=== PATIENT | female | born 1950 | race Caucasian/White ===

== ENCOUNTER 2023-06-25 15:44 | Inpatient (IN) | payer BC, MEDICARE ==
[2023-06-25] MEDS ORDERED: NOREPINEPHRINE 8 MG/250 ML-D5W 250 ML ONE (17:23)
[2023-06-25] MEDS ORDERED: fentaNYL 50 mcg/mL 1 mL Vial ONE (18:29)
[2023-06-25 18:47] LABS: Hemoglobin 9.3 g/dL (12.0-16.0); Mean Corpuscular HGB CONC 34.4 g/dL (32.0-36.0); Mean Corpuscular Volume 104.7 fl (78.0-98.0); Mean Platelet Volume 10.7 fL (7.4-10.4); Red Blood Cell (RBC) Count 2.58 mill/uL (4.20-5.40); White Blood Cell (WBC) Count 3.3 10x3/uL (4.8-10.8)
[2023-06-25 18:48] LABS: Delete Auto Diff?? YES; Manual Diff?? YES; Platelet Count 88 10x3/uL (130-400)
[2023-06-25 18:56] LABS: INR-International Normal Ratio 1.3; PTT 31.1 sec (22.9-36.1)
[2023-06-25] MEDS ORDERED: Sodium Chloride 0.9% 1,000 ML IV SCH (19:00)
[2023-06-25 19:02] LABS: ALT (SGPT) 27 U/L (8-55); AST (SGOT) 61 U/L (5-34); Albumin 3.2 g/dL (3.4-4.8); Alkaline Phosphatase 103 U/L (40-110); Anion Gap 15 mmol/L (10-20); BUN (Urea Nitrogen) 33 mg/dL (9.8-20.1); Bilirubin, Total 0.6 mg/dL (0.2-1.2); CRP (Inflammatory) 5.13 mg/dL (= or < 0.5); Calc. Creatinine Clearance 0 mL/min (70-130); Calcium 7.8 mg/dL (7.8-10.44); Carbon Dioxide 17 mmol/L (23-31); Chloride 110 mmol/L (98-107); Estimated GFR 24; Globulin 2.1 g/dL (2.4-3.5); Glucose 96 mg/dL (83-110); Magnesium 1.6 mg/dL (1.6-2.6); Potassium 4.2 mmol/L (3.5-5.1); Protein, Total 5.3 g/dL (5.8-8.1); Sodium 138 mmol/L (136-145)
[2023-06-25 19:10] LABS: Anisocytosis SLIGHT = 6-15 cells HPF (0-5); Band 38 % (5-11); CellaVision Operator ID LAB.MJL; Dohle Bodies SLIGHT; Elliptocytes SLIGHT = 2-5 cells HPF (0-1); Eosinophils 2 % (0-10); Large Platelets 1.9 % (0-5); Lymphocytes 10 % (21-51); Macrocytosis SLIGHT = 6-15 cells HPF (0-5); Neutrophil 50 % (42-75); Nucleated RBC (Manual Ct) 7 % (0); Ovalocytes SLIGHT = 2-5 cells HPF (0-1); Platelet Adequacy Comment Platelets Decreased; Poikilocytosis SLIGHT = 6-15 cells HPF (0-5); Polychromasia SLIGHT = 2-3 cells HPF (0-2); Schistocytes SLIGHT = 2-5 cells HPF (0-1); Tear Drops SLIGHT = 2-5 cells HPF (0-1); Total Cell Count 103; Vacuoles SLIGHT
[2023-06-25 19:20] LABS: Troponin I 0.464 ng/mL (< 0.028)
[2023-06-25] MEDS ORDERED: Glucagon 1 MG/ML KIT IM PRN (20:01)
[2023-06-25] MEDS ORDERED: Dextrose 5% in Water 1,000 ML IV PRN (20:01)
[2023-06-25] MEDS ORDERED: Dextrose 50% Abboject 50 ML SYRINGE SLOW IVP PRN (20:01)
[2023-06-25] MEDS: Morphine 4 MG/ML VIAL SLOW IVP PRN (21:23)
[2023-06-25] MEDS: Famotidine 20 MG TAB PO SCH (21:25)
[2023-06-25 21:55] LABS: Lactic Acid 3.6 mmol/L (0.5-2.2)
[2023-06-25] MEDS ORDERED: Vancomycin Dose by Levels Sliding Scale (Wt 71-99) FS SCH (22:15)
[2023-06-25] MEDS ORDERED: Sodium Bicarbonate 70 MEQ in Sodium Chloride 0.45% 1,000 ML IV SCH (22:45)
[2023-06-25] MEDS ORDERED: Sodium Chloride 0.9% 500 ML IV SCH (22:45)
[2023-06-25] MEDS ORDERED: Vasopressin 20 UNITS in Sodium Chloride 0.9% 50 ML IV SCH (22:45)
[2023-06-25] MEDS: NOREPINEPHRINE 8 MG/250 ML-D5W 250 ML IVPB SCH (23:14)
[2023-06-25] MEDS ORDERED: Hydrocortisone Sod Succ/PF 100 mg/2 ml Vial IVP SCH (23:59)
[2023-06-26] MEDS: Cefepime 1 GM in Sodium Chloride 0.9% 100 ML IVPB SCH ×2 (02:54→15:14)
[2023-06-26] MEDS: NOREPINEPHRINE 8 MG/250 ML-D5W 250 ML IVPB SCH ×3 (02:56→19:23)
[2023-06-26 04:09] LABS: Hematocrit 28.6 % (36.0-47.0); Hemoglobin 9.6 g/dL (12.0-16.0); Mean Corpuscular HGB CONC 33.6 g/dL (32.0-36.0); Mean Corpuscular Hemoglobin 35.4 pg (27.0-31.0); Mean Corpuscular Volume 105.5 fl (78.0-98.0); Platelet Count 95 10x3/uL (130-400); RBC Distribution Width 15.4 % (11.5-14.5); Red Blood Cell (RBC) Count 2.71 mill/uL (4.20-5.40); White Blood Cell (WBC) Count 6.7 10x3/uL (4.8-10.8)
[2023-06-26 04:11] LABS: Delete Auto Diff?? YES; Manual Diff?? YES
[2023-06-26 04:25] LABS: Lactic Acid 3.2 mmol/L (0.5-2.2)
[2023-06-26 04:31] LABS: ALT (SGPT) 34 U/L (8-55); AST (SGOT) 90 U/L (5-34); Albumin 3.2 g/dL (3.4-4.8); Alkaline Phosphatase 109 U/L (40-110); Anion Gap 17 mmol/L (10-20); BUN (Urea Nitrogen) 35 mg/dL (9.8-20.1); Bilirubin, Total 0.8 mg/dL (0.2-1.2); CK (CPK) 1734 U/L (29-168); Calc. Creatinine Clearance 25 mL/min (70-130); Calcium 7.4 mg/dL (7.8-10.44); Carbon Dioxide 17 mmol/L (23-31); Chloride 107 mmol/L (98-107); Estimated GFR 20; Globulin 2.5 g/dL (2.4-3.5); Glucose 189 mg/dL (83-110); Potassium 4.5 mmol/L (3.5-5.1); Protein, Total 5.7 g/dL (5.8-8.1); Sodium 136 mmol/L (136-145)
[2023-06-26 04:32] LABS: Anisocytosis SLIGHT = 6-15 cells HPF (0-5); Band 38 % (5-11); CellaVision Operator ID LAB.CLH1; Hypochromia SLIGHT = 6-15 cells HPF (0-5); Lymphocytes 3 % (21-51); Macrocytosis SLIGHT = 6-15 cells HPF (0-5); Metamyelocyte 5 % (0-0); Monocytes 5 % (0-10); Neutrophil 50 % (42-75); Nucleated RBC (Manual Ct) 2 % (0); Platelet Adequacy Comment Platelets Decreased; Polychromasia SLIGHT = 2-3 cells HPF (0-2); Total Cell Count 105
[2023-06-26] MEDS ORDERED: Vancomycin 1 GM in Premix 1 BAG IVPB SCH (09:00)
[2023-06-26] MEDS ORDERED: Lactated Ringer's 1,000 ML IV SCH (09:30)
[2023-06-26] MEDS: Morphine 4 MG/ML VIAL SLOW IVP PRN (09:45)
[2023-06-26] MEDS: Ondansetron PF 4 MG/2 ML Vial IVP PRN (09:54)
[2023-06-26] MEDS: HYDROcodone/Acetaminophen 10/325 mg Tablet PO PRN ×2 (12:26→20:25)
[2023-06-26 13:34] LABS: Vancomycin, Random 12.7 ug/mL (See Comment)
[2023-06-26] MEDS ORDERED: Vancomycin HCl 750 MG in Sodium Chloride 0.9% 250 ML 250 ML IVPB SCH (13:45)
[2023-06-26] MEDS: Sodium Chloride 0.45% 1,000 ML IV SCH (17:16)
[2023-06-26] MEDS: Famotidine 20 MG TAB PO SCH (20:26)
[2023-06-26] MEDS ORDERED: Sodium Chloride 0.9% 500 ML IV SCH (23:15)
[2023-06-26] MEDS ORDERED: Amiodarone 150 MG, Admixture Fee 1 EACH in Dextrose 5% in Water 100 ML IVPB SCH (23:30)
[2023-06-26] MEDS: Amiodarone 450 MG in Dextrose 5% in Water 250 ML IVPB SCH (23:36)
[2023-06-27] MEDS: HYDROcodone/Acetaminophen 10/325 mg Tablet PO PRN ×2 (01:24→06:14)
[2023-06-27] MEDS: Cefepime 1 GM in Sodium Chloride 0.9% 100 ML IVPB SCH ×2 (02:06→14:08)
[2023-06-27] MEDS ORDERED: dilTIAZem 25 MG/5 ML VIAL SLOW IVP SCH (03:00)
[2023-06-27 05:22] LABS: Hematocrit 25.9 % (36.0-47.0); Hemoglobin 8.6 g/dL (12.0-16.0); Mean Corpuscular HGB CONC 33.2 g/dL (32.0-36.0); Mean Corpuscular Volume 105.3 fl (78.0-98.0); Mean Platelet Volume 12.5 fL (7.4-10.4); RBC Distribution Width 15.3 % (11.5-14.5); Red Blood Cell (RBC) Count 2.46 mill/uL (4.20-5.40); White Blood Cell (WBC) Count 5.7 10x3/uL (4.8-10.8)
[2023-06-27 05:27] LABS: Platelet Count 53 10x3/uL (130-400)
[2023-06-27 05:28] LABS: Delete Auto Diff?? YES; Manual Diff?? YES
[2023-06-27 05:46] LABS: ALT (SGPT) 37 U/L (8-55); AST (SGOT) 72 U/L (5-34); Albumin 2.8 g/dL (3.4-4.8); Alkaline Phosphatase 106 U/L (40-110); Anion Gap 14 mmol/L (10-20); BUN (Urea Nitrogen) 25 mg/dL (9.8-20.1); Bilirubin, Total 0.8 mg/dL (0.2-1.2); Calc. Creatinine Clearance 43 mL/min (70-130); Calcium 7.8 mg/dL (7.8-10.44); Carbon Dioxide 21 mmol/L (23-31); Chloride 110 mmol/L (98-107); Estimated GFR 38; Globulin 2.5 g/dL (2.4-3.5); Glucose 140 mg/dL (83-110); Potassium 4.4 mmol/L (3.5-5.1); Protein, Total 5.3 g/dL (5.8-8.1); Sodium 141 mmol/L (136-145)
[2023-06-27 05:48] LABS: Troponin I 0.112 ng/mL (< 0.028)
[2023-06-27] MEDS: Sodium Chloride 0.45% 1,000 ML IV SCH ×2 (05:56→20:21)
[2023-06-27 06:11] LABS: Anisocytosis MODERATE=16-30 cells HPF (0-5); Band 15 % (5-11); CellaVision Operator ID lab.sh2; Lymphocytes 5 % (21-51); Macrocytosis MODERATE=16-30 cells HPF (0-5); Monocytes 13 % (0-10); Neutrophil 67 % (42-75); Nucleated RBC (Manual Ct) 2 % (0); Ovalocytes MODERATE= 6-15 cells HPF (0-1); Platelet Adequacy Comment Significant decrease; Poikilocytosis SLIGHT = 6-15 cells HPF (0-5); Polychromasia SLIGHT = 2-3 cells HPF (0-2); Smudge Cells 11.5 %; Tear Drops SLIGHT = 2-5 cells HPF (0-1); Total Cell Count 104; Vacuoles SLIGHT
[2023-06-27] MEDS: Amiodarone 450 MG in Dextrose 5% in Water 250 ML IVPB SCH ×2 (08:32→23:04)
[2023-06-27 13:15] LABS: Vancomycin, Random 11.4 ug/mL (See Comment)
[2023-06-27] MEDS: Lorazepam 2 MG/ML VIAL SLOW IVP PRN ×2 (17:44→22:22)
[2023-06-27] MEDS: Famotidine 20 MG TAB PO SCH (20:23)
[2023-06-28] MEDS: Morphine 4 MG/ML VIAL SLOW IVP PRN (00:15)
[2023-06-28] MEDS ORDERED: OLANZapine 10 MG VIAL IM SCH (01:00)
[2023-06-28] MEDS ORDERED: Sterile Water 10 ML VIAL FS SCH (01:15)
[2023-06-28] MEDS: Cefepime 1 GM in Sodium Chloride 0.9% 100 ML IVPB SCH ×2 (02:24→14:02)
[2023-06-28 04:24] LABS: Hematocrit 23.5 % (36.0-47.0); Mean Corpuscular Hemoglobin 35.7 pg (27.0-31.0); Mean Corpuscular Volume 104.9 fl (78.0-98.0); Mean Platelet Volume 13.3 fL (7.4-10.4); RBC Distribution Width 15.1 % (11.5-14.5); Red Blood Cell (RBC) Count 2.24 mill/uL (4.20-5.40); White Blood Cell (WBC) Count 5.5 10x3/uL (4.8-10.8)
[2023-06-28 04:26] LABS: Platelet Count 43 10x3/uL (130-400)
[2023-06-28 04:27] LABS: Delete Auto Diff?? YES; Manual Diff?? YES
[2023-06-28 04:51] LABS: ALT (SGPT) 33 U/L (8-55); AST (SGOT) 52 U/L (5-34); Alkaline Phosphatase 120 U/L (40-110); Anion Gap 11 mmol/L (10-20); BUN (Urea Nitrogen) 24 mg/dL (9.8-20.1); Bilirubin, Total 0.5 mg/dL (0.2-1.2); Calc. Creatinine Clearance 53 mL/min (70-130); Calcium 8.8 mg/dL (7.8-10.44); Carbon Dioxide 23 mmol/L (23-31); Chloride 113 mmol/L (98-107); Estimated GFR 50; Globulin 2.4 g/dL (2.4-3.5); Glucose 88 mg/dL (83-110); Potassium 4.5 mmol/L (3.5-5.1); Protein, Total 5.4 g/dL (5.8-8.1); Sodium 142 mmol/L (136-145)
[2023-06-28 05:01] LABS: Anisocytosis SLIGHT = 6-15 cells HPF (0-5); Band 32 % (5-11); CellaVision Operator ID LAB.CLH1; Hypochromia SLIGHT = 6-15 cells HPF (0-5); Lymphocytes 8 % (21-51); Macrocytosis SLIGHT = 6-15 cells HPF (0-5); Monocytes 3 % (0-10); Neutrophil 56 % (42-75); Platelet Adequacy Comment Platelets Decreased; Polychromasia SLIGHT = 2-3 cells HPF (0-2); Total Cell Count 100
[2023-06-28] MEDS: Sodium Chloride 0.45% 1,000 ML IV SCH ×2 (08:19→21:12)
[2023-06-28] MEDS: Dexmedetomidine 400 MCG, Admixture Fee 1 EACH in Sodium Chloride 0.9% 96 ML IVPB SCH ×2 (09:02→21:22)
[2023-06-28] MEDS: Gabapentin 300 MG CAP PO SCH ×2 (09:03→20:56)
[2023-06-28] MEDS: ALPRAZolam 0.5 MG TAB PO SCH ×3 (09:19→20:55)
[2023-06-28] MEDS ORDERED: Sodium Chloride 0.9% 500 ML IV SCH (11:45)
[2023-06-28] MEDS: Amiodarone 450 MG in Dextrose 5% in Water 250 ML IVPB SCH (14:03)
[2023-06-28] MEDS: Famotidine 20 MG TAB PO SCH (20:55)
[2023-06-29] MEDS: Cefepime 1 GM in Sodium Chloride 0.9% 100 ML IVPB SCH (03:50)
[2023-06-29 04:20] LABS: Hematocrit 25.8 % (36.0-47.0); Hemoglobin 8.8 g/dL (12.0-16.0); Mean Corpuscular HGB CONC 34.1 g/dL (32.0-36.0); Mean Corpuscular Hemoglobin 36.5 pg (27.0-31.0); Mean Corpuscular Volume 107.1 fl (78.0-98.0); Mean Platelet Volume 14.1 fL (7.4-10.4); RBC Distribution Width 15.3 % (11.5-14.5); Red Blood Cell (RBC) Count 2.41 mill/uL (4.20-5.40); White Blood Cell (WBC) Count 6.4 10x3/uL (4.8-10.8)
[2023-06-29 04:22] LABS: Delete Auto Diff?? YES; Manual Diff?? YES; Platelet Count 64 10x3/uL (130-400)
[2023-06-29 04:48] LABS: ALT (SGPT) 36 U/L (8-55); AST (SGOT) 43 U/L (5-34); Albumin 2.9 g/dL (3.4-4.8); Alkaline Phosphatase 127 U/L (40-110); Anion Gap 16 mmol/L (10-20); BUN (Urea Nitrogen) 30 mg/dL (9.8-20.1); Bilirubin, Total 0.5 mg/dL (0.2-1.2); Calc. Creatinine Clearance 55 mL/min (70-130); Calcium 8.3 mg/dL (7.8-10.44); Carbon Dioxide 19 mmol/L (23-31); Chloride 114 mmol/L (98-107); Estimated GFR 52; Globulin 2.5 g/dL (2.4-3.5); Glucose 114 mg/dL (83-110); Potassium 4.9 mmol/L (3.5-5.1); Protein, Total 5.4 g/dL (5.8-8.1); Sodium 144 mmol/L (136-145)
[2023-06-29 05:02] LABS: Anisocytosis MODERATE=16-30 cells HPF (0-5); Band 4 % (5-11); CellaVision Operator ID lab.sh2; Dohle Bodies MODERATE; Lymphocytes 12 % (21-51); Macrocytosis MODERATE=16-30 cells HPF (0-5); Monocytes 7 % (0-10); Neutrophil 77 % (42-75); Nucleated RBC (Manual Ct) 3 % (0); Ovalocytes MODERATE= 6-15 cells HPF (0-1); Platelet Adequacy Comment Platelets Decreased; Poikilocytosis SLIGHT = 6-15 cells HPF (0-5); Polychromasia SLIGHT = 2-3 cells HPF (0-2); Tear Drops SLIGHT = 2-5 cells HPF (0-1); Total Cell Count 101; Vacuoles SLIGHT
[2023-06-29] MEDS: Gabapentin 300 MG CAP PO SCH ×3 (08:46→20:27)
[2023-06-29] MEDS: ALPRAZolam 0.5 MG TAB PO SCH ×3 (08:46→20:34)
[2023-06-29] MEDS: HYDROcodone/Acetaminophen 10/325 mg Tablet PO PRN ×2 (08:47→16:43)
[2023-06-29] MEDS ORDERED: Amiodarone 200 MG TAB PO SCH (10:30)
[2023-06-29] MEDS ORDERED: Polyethylene Glycol 3350 17 GM Packet PO SCH (11:30)
[2023-06-29] MEDS ORDERED: Electrolyte Replacement Protocol FS PRN (11:30)
[2023-06-29] MEDS ORDERED: Electrolyte Replacement Protocol 1 EACH FS SCH (11:30)
[2023-06-29] MEDS ORDERED: Senokot S 8.6-50 MG TAB PO SCH (11:30)
[2023-06-29] MEDS: Dextrose 5 %-0.45 % NaCl 1,000 ML IV SCH (11:33)
[2023-06-29] MEDS: Sodium Chloride 0.45% 1,000 ML IV SCH (12:18)
[2023-06-29] MEDS: Amiodarone 200 MG TAB PO SCH ×2 (16:02→20:21)
[2023-06-29] MEDS: Morphine 4 MG/ML VIAL SLOW IVP PRN (18:58)
[2023-06-29] MEDS: Famotidine 20 MG TAB PO SCH (20:21)
[2023-06-29] MEDS: Senokot S 8.6-50 MG TAB PO SCH (20:27)
[2023-06-30] MEDS: Dextrose 5 %-0.45 % NaCl 1,000 ML IV SCH ×2 (00:32→08:39)
[2023-06-30 04:06] LABS: Hematocrit 24.6 % (36.0-47.0); Hemoglobin 8.3 g/dL (12.0-16.0); Mean Corpuscular HGB CONC 33.7 g/dL (32.0-36.0); Mean Corpuscular Hemoglobin 35.2 pg (27.0-31.0); Mean Corpuscular Volume 104.2 fl (78.0-98.0); Mean Platelet Volume 13.1 fL (7.4-10.4); RBC Distribution Width 15.1 % (11.5-14.5); Red Blood Cell (RBC) Count 2.36 mill/uL (4.20-5.40); White Blood Cell (WBC) Count 5.6 10x3/uL (4.8-10.8)
[2023-06-30 04:07] LABS: Platelet Count 63 10x3/uL (130-400)
[2023-06-30 04:08] LABS: Delete Auto Diff?? YES; Manual Diff?? YES
[2023-06-30 04:34] LABS: ALT (SGPT) 30 U/L (8-55); AST (SGOT) 34 U/L (5-34); Albumin 2.9 g/dL (3.4-4.8); Alkaline Phosphatase 125 U/L (40-110); Anion Gap 11 mmol/L (10-20); BUN (Urea Nitrogen) 28 mg/dL (9.8-20.1); Bilirubin, Total 0.3 mg/dL (0.2-1.2); Calc. Creatinine Clearance 65 mL/min (70-130); Calcium 8.3 mg/dL (7.8-10.44); Carbon Dioxide 22 mmol/L (23-31); Chloride 110 mmol/L (98-107); Estimated GFR 64; Globulin 2.3 g/dL (2.4-3.5); Glucose 159 mg/dL (83-110); Potassium 4.2 mmol/L (3.5-5.1); Protein, Total 5.2 g/dL (5.8-8.1); Sodium 139 mmol/L (136-145)
[2023-06-30 04:37] LABS: Band 24 % (5-11); CellaVision Operator ID LAB.CLH1; Elliptocytes SLIGHT = 2-5 cells HPF (0-1); Hypochromia SLIGHT = 6-15 cells HPF (0-5); Lymphocytes 16 % (21-51); Macrocytosis SLIGHT = 6-15 cells HPF (0-5); Monocytes 6 % (0-10); Neutrophil 54 % (42-75); Platelet Adequacy Comment Platelets Normal; Polychromasia SLIGHT = 2-3 cells HPF (0-2); Reactive Lymphocytes 1 % (0-10); Total Cell Count 101
[2023-06-30] MEDS ORDERED: tiZANidine HCl 4 MG TAB PO PRN (08:31)
[2023-06-30] MEDS: Polyethylene Glycol 3350 17 GM Packet PO SCH (08:36)
[2023-06-30] MEDS: Senokot S 8.6-50 MG TAB PO SCH ×2 (08:36→22:19)
[2023-06-30] MEDS: Gabapentin 300 MG CAP PO SCH ×2 (08:36→22:18)
[2023-06-30] MEDS: Famotidine 20 MG TAB PO SCH ×2 (08:36→22:19)
[2023-06-30] MEDS: Amiodarone 200 MG TAB PO SCH ×3 (08:45→22:18)
[2023-06-30] MEDS ORDERED: CEFAZOLIN 2 GM in Sodium Chloride 0.9% 100 ML IVPB SCH (09:45)
[2023-06-30] MEDS ORDERED: Vancomycin 1 GM in Premix 1 BAG IVPB SCH (09:45)
[2023-06-30] MEDS: ALPRAZolam 0.5 MG TAB PO SCH ×3 (09:52→22:18)
[2023-06-30] MEDS: Exemestane 25 MG TAB PO SCH (09:52)
[2023-06-30] MEDS: Morphine 4 MG/ML VIAL SLOW IVP PRN ×2 (10:07→14:42)
[2023-06-30] MEDS: HYDROcodone/Acetaminophen 10/325 mg Tablet PO PRN (18:23)
[2023-07-01] MEDS: Dextrose 5 %-0.45 % NaCl 1,000 ML IV SCH ×2 (09:53→18:28)
[2023-07-01] MEDS: Senokot S 8.6-50 MG TAB PO SCH ×2 (09:56→21:46)
[2023-07-01] MEDS: Polyethylene Glycol 3350 17 GM Packet PO SCH (09:56)
[2023-07-01] MEDS: Gabapentin 300 MG CAP PO SCH ×2 (09:58→21:46)
[2023-07-01] MEDS: ALPRAZolam 0.5 MG TAB PO SCH ×3 (09:58→21:34)
[2023-07-01] MEDS: Amiodarone 200 MG TAB PO SCH ×3 (09:58→21:46)
[2023-07-01] MEDS: Famotidine 20 MG TAB PO SCH ×2 (09:59→21:46)
[2023-07-01] MEDS ORDERED: fentaNYL PF 100 MCG/2 ML SYRINGE ONE ×2 (13:02→15:59)
[2023-07-01] MEDS ORDERED: CEFAZOLIN 2 GM VIAL ONE (13:26)
[2023-07-01] MEDS ORDERED: Sodium Chloride 0.9% 100 ML ONE (13:26)
[2023-07-01] MEDS ORDERED: Vancomycin 1 GM VIAL ONE (13:59)
[2023-07-01] MEDS ORDERED: Ondansetron PF 4 MG/2 ML Vial ONE (14:05)
[2023-07-01] MEDS ORDERED: PHENYLEPHRINE-NS 100 MCG/ML 10 ML SYRINGE ONE (14:05)
[2023-07-01] MEDS ORDERED: Lidocaine 1% PF 5 ML VIAL ONE (14:05)
[2023-07-01] MEDS ORDERED: Rocuronium Bromide 10 MG/ML (10ML VIAL) ONE (14:05)
[2023-07-01] MEDS ORDERED: Phenylephrine 10 MG/ML VIAL ONE (14:13)
[2023-07-01] MEDS ORDERED: Promethazine HCl 25 MG/ML VIAL IM PRN (14:46)
[2023-07-01] MEDS ORDERED: Ondansetron HCl/PF 4 MG/2 ML Vial IVP PRN (14:46)
[2023-07-01] MEDS ORDERED: SUGAMMADEX SODIUM 200 MG/2 ML VIAL ONE (14:53)
[2023-07-01] MEDS ORDERED: fentaNYL 50 mcg/mL 1 mL Vial ONE ×2 (15:47→16:39)
[2023-07-01] MEDS: Exemestane 25 MG TAB PO SCH (18:10)
[2023-07-01] MEDS: Morphine 4 MG/ML VIAL SLOW IVP PRN (18:10)
[2023-07-01] MEDS: CEFAZOLIN 2 GM in Sodium Chloride 0.9% 100 ML IVPB SCH (21:35)
[2023-07-02 04:42] LABS: Hematocrit 33.7 % (36.0-47.0); Hemoglobin 11.5 g/dL (12.0-16.0); Mean Corpuscular HGB CONC 34.1 g/dL (32.0-36.0); Mean Corpuscular Hemoglobin 34.5 pg (27.0-31.0); Mean Corpuscular Volume 101.2 fl (78.0-98.0); Mean Platelet Volume 12.7 fL (7.4-10.4); Platelet Count 133 10x3/uL (130-400); RBC Distribution Width 19.3 % (11.5-14.5); Red Blood Cell (RBC) Count 3.33 mill/uL (4.20-5.40); White Blood Cell (WBC) Count 8.4 10x3/uL (4.8-10.8)
[2023-07-02 05:05] LABS: ALT (SGPT) 35 U/L (8-55); AST (SGOT) 41 U/L (5-34); Albumin 3.3 g/dL (3.4-4.8); Alkaline Phosphatase 145 U/L (40-110); Anion Gap 16 mmol/L (10-20); BUN (Urea Nitrogen) 20 mg/dL (9.8-20.1); Bilirubin, Total 0.9 mg/dL (0.2-1.2); Calc. Creatinine Clearance 60 mL/min (70-130); Calcium 8.4 mg/dL (7.8-10.44); Carbon Dioxide 20 mmol/L (23-31); Chloride 105 mmol/L (98-107); Estimated GFR 59; Globulin 2.8 g/dL (2.4-3.5); Glucose 153 mg/dL (83-110); Potassium 4.5 mmol/L (3.5-5.1); Protein, Total 6.1 g/dL (5.8-8.1); Sodium 136 mmol/L (136-145)
[2023-07-02 05:24] LABS: Delete Auto Diff?? YES; Manual Diff?? YES
[2023-07-02 06:06] LABS: Anisocytosis SLIGHT = 6-15 cells HPF (0-5); Band 4 % (5-11); CellaVision Operator ID lab.abc; Large Platelets 1.7 % (0-5); Lymphocytes 3 % (21-51); Monocytes 13 % (0-10); Neutrophil 79 % (42-75); Nucleated RBC (Manual Ct) 3 % (0); Platelet Adequacy Comment Platelets Normal; Polychromasia SLIGHT = 2-3 cells HPF (0-2); Total Cell Count 120; Toxic Granulation SLIGHT
[2023-07-02] MEDS: CEFAZOLIN 2 GM in Sodium Chloride 0.9% 100 ML IVPB SCH (06:06)
[2023-07-02] MEDS: Dextrose 5 %-0.45 % NaCl 1,000 ML IV SCH ×2 (09:25→20:57)
[2023-07-02] MEDS: Polyethylene Glycol 3350 17 GM Packet PO SCH (09:25)
[2023-07-02] MEDS: Exemestane 25 MG TAB PO SCH (09:26)
[2023-07-02] MEDS: Senokot S 8.6-50 MG TAB PO SCH ×2 (09:27→20:55)
[2023-07-02] MEDS: ALPRAZolam 0.5 MG TAB PO SCH ×3 (09:28→22:56)
[2023-07-02] MEDS: Famotidine 20 MG TAB PO SCH ×2 (09:29→20:52)
[2023-07-02] MEDS: Amiodarone 200 MG TAB PO SCH ×2 (09:30→20:52)
[2023-07-02] MEDS: Gabapentin 300 MG CAP PO SCH ×2 (09:48→20:53)
[2023-07-02] MEDS: Acetaminophen 325 MG TAB PO PRN (20:56)
[2023-07-02] MEDS: HYDROcodone/Acetaminophen 10/325 mg Tablet PO PRN (22:55)
[2023-07-03 05:39] LABS: Hematocrit 26.8 % (36.0-47.0); Mean Corpuscular HGB CONC 33.6 g/dL (32.0-36.0); Mean Corpuscular Hemoglobin 34.4 pg (27.0-31.0); Mean Corpuscular Volume 102.3 fl (78.0-98.0); Mean Platelet Volume 11.6 fL (7.4-10.4); Platelet Count 116 10x3/uL (130-400); Red Blood Cell (RBC) Count 2.62 mill/uL (4.20-5.40); White Blood Cell (WBC) Count 8.6 10x3/uL (4.8-10.8)
[2023-07-03 06:05] LABS: ALT (SGPT) 18 U/L (8-55); AST (SGOT) 26 U/L (5-34); Alkaline Phosphatase 99 U/L (40-110); Anion Gap 11 mmol/L (10-20); BUN (Urea Nitrogen) 22 mg/dL (9.8-20.1); Bilirubin, Total 0.4 mg/dL (0.2-1.2); Calc. Creatinine Clearance 70 mL/min (70-130); Calcium 8.7 mg/dL (7.8-10.44); Carbon Dioxide 24 mmol/L (23-31); Chloride 106 mmol/L (98-107); Estimated GFR 73; Globulin 2.4 g/dL (2.4-3.5); Glucose 148 mg/dL (83-110); Protein, Total 5.4 g/dL (5.8-8.1); Sodium 137 mmol/L (136-145)
[2023-07-03 06:19] LABS: Delete Auto Diff?? YES; Manual Diff?? YES
[2023-07-03 07:08] LABS: Anisocytosis MODERATE=16-30 cells HPF (0-5); Band 5 % (5-11); CellaVision Operator ID LAB.CMB; Elliptocytes SLIGHT = 2-5 cells HPF (0-1); Eosinophils 1 % (0-10); Large Platelets 2.9 % (0-5); Lymphocytes 12 % (21-51); Macrocytosis MODERATE=16-30 cells HPF (0-5); Monocytes 5 % (0-10); Neutrophil 75 % (42-75); Plasma Cells 2 % (0-0); Platelet Adequacy Comment Platelets Decreased; Polychromasia MODERATE = 3-4 cells HPF (0-2); Total Cell Count 105
[2023-07-03] MEDS: Gabapentin 300 MG CAP PO SCH ×2 (08:54→20:44)
[2023-07-03] MEDS: Amiodarone 200 MG TAB PO SCH ×2 (08:55→20:44)
[2023-07-03] MEDS: Famotidine 20 MG TAB PO SCH ×2 (08:55→20:43)
[2023-07-03] MEDS: Senokot S 8.6-50 MG TAB PO SCH ×2 (08:56→20:46)
[2023-07-03] MEDS: Polyethylene Glycol 3350 17 GM Packet PO SCH (08:56)
[2023-07-03] MEDS: Exemestane 25 MG TAB PO SCH (08:57)
[2023-07-03] MEDS: ALPRAZolam 0.5 MG TAB PO SCH ×3 (08:57→20:42)
[2023-07-03] MEDS: Dextrose 5 %-0.45 % NaCl 1,000 ML IV SCH (16:28)
[2023-07-03] MEDS: HYDROcodone/Acetaminophen 10/325 mg Tablet PO PRN ×2 (16:32→21:47)
[2023-07-04] MEDS: Amiodarone 200 MG TAB PO SCH ×2 (08:30→20:24)
[2023-07-04] MEDS: Famotidine 20 MG TAB PO SCH ×2 (08:30→20:24)
[2023-07-04] MEDS: Exemestane 25 MG TAB PO SCH (08:30)
[2023-07-04] MEDS: Polyethylene Glycol 3350 17 GM Packet PO SCH (08:31)
[2023-07-04] MEDS: Senokot S 8.6-50 MG TAB PO SCH ×2 (08:31→20:24)
[2023-07-04] MEDS: ALPRAZolam 0.5 MG TAB PO SCH ×3 (08:31→20:24)
[2023-07-04] MEDS: Gabapentin 300 MG CAP PO SCH ×2 (08:31→20:25)
[2023-07-04] MEDS: Dextrose 5 %-0.45 % NaCl 1,000 ML IV SCH (12:30)
[2023-07-04] MEDS: HYDROcodone/Acetaminophen 10/325 mg Tablet PO PRN (18:04)
[2023-07-04] MEDS: Acetaminophen 325 MG TAB PO PRN (20:25)
[2023-07-05] MEDS: Triple Antibiotic Ointment 15 GM TUBE TOP SCH ×2 (08:45→20:45)
[2023-07-05] MEDS: Senokot S 8.6-50 MG TAB PO SCH ×2 (08:45→20:45)
[2023-07-05] MEDS: Amiodarone 200 MG TAB PO SCH ×2 (08:46→20:46)
[2023-07-05] MEDS: Gabapentin 300 MG CAP PO SCH ×2 (08:46→20:46)
[2023-07-05] MEDS: Polyethylene Glycol 3350 17 GM Packet PO SCH (08:47)
[2023-07-05] MEDS: Exemestane 25 MG TAB PO SCH (08:47)
[2023-07-05] MEDS: Dextrose 5 %-0.45 % NaCl 1,000 ML IV SCH (08:48)
[2023-07-05] MEDS: ALPRAZolam 0.5 MG TAB PO SCH ×3 (09:13→20:15)
[2023-07-05] MEDS: Famotidine 20 MG TAB PO SCH ×2 (09:17→20:46)
[2023-07-05] MEDS: Acetaminophen 325 MG TAB PO PRN ×2 (11:02→20:44)
[2023-07-06] MEDS: Dextrose 5 %-0.45 % NaCl 1,000 ML IV SCH (05:00)
[2023-07-06 05:34] LABS: #Basophils 0.1 thou/uL (0.0-0.2); #Eosinphils 0.1 thou/uL (0.0-0.7); #Monocytes 0.8 thou/uL (0.11-0.59); #Neutrophils 4.4 thou/uL (1.40-6.50); %Basophils 0.9 % (0.0-1.0); %Eosinophils 1.2 % (0.0-10.0); %Monocytes 11.7 % (0.0-10.0); %Neutrophils 65.7 % (42.0-75.0); Hematocrit 27.2 % (36.0-47.0); Hemoglobin 8.9 g/dL (12.0-16.0); Mean Corpuscular HGB CONC 32.7 g/dL (32.0-36.0); Mean Corpuscular Hemoglobin 33.8 pg (27.0-31.0); Mean Corpuscular Volume 103.4 fl (78.0-98.0); Mean Platelet Volume 10.2 fL (7.4-10.4); Platelet Count 243 10x3/uL (130-400); RBC Distribution Width 16.8 % (11.5-14.5); Red Blood Cell (RBC) Count 2.63 mill/uL (4.20-5.40); White Blood Cell (WBC) Count 6.7 10x3/uL (4.8-10.8)
[2023-07-06 05:55] LABS: Anion Gap 15 mmol/L (10-20); BUN (Urea Nitrogen) 19 mg/dL (9.8-20.1); Calc. Creatinine Clearance 74 mL/min (70-130); Calcium 8.5 mg/dL (7.8-10.44); Carbon Dioxide 22 mmol/L (23-31); Chloride 107 mmol/L (98-107); Estimated GFR 77; Glucose 96 mg/dL (83-110); Magnesium 1.9 mg/dL (1.6-2.6); Sodium 140 mmol/L (136-145)
[2023-07-06] MEDS: Acetaminophen 325 MG TAB PO PRN ×2 (06:53→10:48)
[2023-07-06] MEDS ORDERED: Magnesium 2 GM/50 ML(in water) 2 GM in Premix 1 BAG IVPB SCH (08:00)
[2023-07-06] MEDS ORDERED: Morphine 2 MG/ML VIAL SLOW IVP PRN (09:03)
[2023-07-06] MEDS: ALPRAZolam 0.5 MG TAB PO SCH ×3 (10:49→20:55)
[2023-07-06] MEDS: Polyethylene Glycol 3350 17 GM Packet PO SCH (10:49)
[2023-07-06] MEDS: Exemestane 25 MG TAB PO SCH (10:50)
[2023-07-06] MEDS: Gabapentin 300 MG CAP PO SCH ×2 (10:50→20:54)
[2023-07-06] MEDS: Amiodarone 200 MG TAB PO SCH ×2 (10:50→20:54)
[2023-07-06] MEDS: Senokot S 8.6-50 MG TAB PO SCH ×2 (10:50→20:54)
[2023-07-06] MEDS: Famotidine 20 MG TAB PO SCH ×2 (10:51→20:54)
[2023-07-06] MEDS: Triple Antibiotic Ointment 15 GM TUBE TOP SCH (10:52)
[2023-07-06] MEDS ORDERED: Aluminum & Magnesium Hydroxide 60 ML, Lidocaine 2% Viscous Solution 30 ML, diphenhydrAM... SSW PRN (11:23)
[2023-07-06] MEDS: Triple Antibiotic Ointment 30 GM TUBE TOP SCH (21:08)
[2023-07-06] MEDS: HYDROcodone/Acetaminophen 10/325 mg Tablet PO PRN (22:47)
[2023-07-07] MEDS: Famotidine 20 MG TAB PO SCH ×2 (07:41→21:02)
[2023-07-07] MEDS: Senokot S 8.6-50 MG TAB PO SCH ×2 (07:41→22:49)
[2023-07-07] MEDS: Amiodarone 200 MG TAB PO SCH ×2 (07:42→21:02)
[2023-07-07] MEDS: Polyethylene Glycol 3350 17 GM Packet PO SCH (07:42)
[2023-07-07] MEDS: Gabapentin 300 MG CAP PO SCH ×2 (07:42→21:02)
[2023-07-07] MEDS: Exemestane 25 MG TAB PO SCH (07:42)
[2023-07-07] MEDS: Triple Antibiotic Ointment 30 GM TUBE TOP SCH ×2 (07:43→21:01)
[2023-07-07] MEDS: ALPRAZolam 0.5 MG TAB PO SCH ×3 (08:00→21:02)
[2023-07-07] MEDS: HYDROcodone/Acetaminophen 10/325 mg Tablet PO PRN ×2 (10:00→17:52)
[2023-07-08] MEDS ORDERED: Nystatin Cream 15 GM TUBE TOP SCH (00:30)
[2023-07-08] MEDS: ALPRAZolam 0.5 MG TAB PO SCH (08:19)
[2023-07-08] MEDS: Polyethylene Glycol 3350 17 GM Packet PO SCH (08:22)
[2023-07-08] MEDS: Senokot S 8.6-50 MG TAB PO SCH ×2 (08:23→21:05)
[2023-07-08] MEDS: Amiodarone 200 MG TAB PO SCH ×2 (08:24→21:06)
[2023-07-08] MEDS: Famotidine 20 MG TAB PO SCH ×2 (08:25→21:06)
[2023-07-08] MEDS: Exemestane 25 MG TAB PO SCH (08:26)
[2023-07-08] MEDS: Nystatin Cream 15 GM TUBE TOP SCH ×2 (08:31→21:06)
[2023-07-08] MEDS: Triple Antibiotic Ointment 30 GM TUBE TOP SCH ×2 (08:32→21:06)
[2023-07-08] MEDS: Gabapentin 300 MG CAP PO SCH ×2 (08:40→21:05)
[2023-07-08] MEDS ORDERED: Fluconazole 100 MG TAB PO SCH (08:45)
[2023-07-08] MEDS ORDERED: ALPRAZolam 0.5 MG TAB PO PRN (10:45)
[2023-07-08 12:03] VITALS: BMI 21.8
[2023-07-08] MEDS: Acetaminophen 325 MG TAB PO PRN ×2 (17:02→21:08)
[2023-07-09 03:57] LABS: #Basophils 0.1 thou/uL (0.0-0.2); #Eosinphils 0.2 thou/uL (0.0-0.7); #Monocytes 0.9 thou/uL (0.11-0.59); #Neutrophils 4.4 thou/uL (1.40-6.50); %Basophils 1.2 % (0.0-1.0); %Lymphocytes 20.3 % (21.0-51.0); %Monocytes 12.5 % (0.0-10.0); %Neutrophils 59.7 % (42.0-75.0); Hematocrit 27.6 % (36.0-47.0); Mean Corpuscular HGB CONC 32.6 g/dL (32.0-36.0); Mean Corpuscular Hemoglobin 33.8 pg (27.0-31.0); Mean Corpuscular Volume 103.8 fl (78.0-98.0); Mean Platelet Volume 9.8 fL (7.4-10.4); Platelet Count 324 10x3/uL (130-400); Red Blood Cell (RBC) Count 2.66 mill/uL (4.20-5.40); White Blood Cell (WBC) Count 7.4 10x3/uL (4.8-10.8)
[2023-07-09 04:23] LABS: Anion Gap 16 mmol/L (10-20); BUN (Urea Nitrogen) 19 mg/dL (9.8-20.1); Calc. Creatinine Clearance 71 mL/min (70-130); Calcium 8.9 mg/dL (7.8-10.44); Carbon Dioxide 21 mmol/L (23-31); Chloride 106 mmol/L (98-107); Estimated GFR 73; Glucose 106 mg/dL (83-110); Potassium 4.6 mmol/L (3.5-5.1); Sodium 138 mmol/L (136-145)
[2023-07-09] MEDS: Polyethylene Glycol 3350 17 GM Packet PO SCH (09:36)
[2023-07-09] MEDS: Senokot S 8.6-50 MG TAB PO SCH ×2 (09:36→21:45)
[2023-07-09] MEDS: Nystatin Cream 15 GM TUBE TOP SCH ×2 (09:51→21:46)
[2023-07-09] MEDS: Exemestane 25 MG TAB PO SCH (09:53)
[2023-07-09] MEDS: Triple Antibiotic Ointment 30 GM TUBE TOP SCH ×2 (09:53→21:49)
[2023-07-09] MEDS: Amiodarone 200 MG TAB PO SCH ×2 (09:54→21:47)
[2023-07-09] MEDS: Famotidine 20 MG TAB PO SCH ×2 (09:54→21:47)
[2023-07-09] MEDS: Gabapentin 300 MG CAP PO SCH ×2 (09:55→21:46)
[2023-07-09] MEDS: Acetaminophen 325 MG TAB PO PRN (10:58)
[2023-07-09] MEDS: HYDROcodone/Acetaminophen 10/325 mg Tablet PO PRN ×2 (15:39→21:50)
[2023-07-10] MEDS: Gabapentin 300 MG CAP PO SCH (09:19)
[2023-07-10] MEDS: Senokot S 8.6-50 MG TAB PO SCH (09:19)
[2023-07-10] MEDS: Famotidine 20 MG TAB PO SCH (09:19)
[2023-07-10] MEDS: Exemestane 25 MG TAB PO SCH (09:19)
[2023-07-10] MEDS: Polyethylene Glycol 3350 17 GM Packet PO SCH (09:19)
[2023-07-10] MEDS: Amiodarone 200 MG TAB PO SCH (09:19)
[2023-07-10] MEDS: Ondansetron PF 4 MG/2 ML Vial IVP PRN (09:20)
[2023-07-10] MEDS: Nystatin Cream 15 GM TUBE TOP SCH (10:34)
[2023-07-10] MEDS: Triple Antibiotic Ointment 30 GM TUBE TOP SCH (10:34)
[2023-07-10 11:51] VITALS: BP 114/73; TEMP 98.3
== END 2023-07-10 14:17 | DRG 521 ==
LOC: ERS 15:44 → CCU 18:39 → IMCU/EMU 06-30 18:15 → 2SE 07-07 08:43 → SURG B 07-09 12:14
PROVIDERS: ADMIT Internal Medicine; ATTEND Internal Medicine
PROC: 02HV33Z Insertion of Infusion Device into Superior Vena Cava, Percutaneous Approach (ICD-10-PCS; 2023-06-25)
PROC: 3E03329 Introduction of Other Anti-infective into Peripheral Vein, Percutaneous Approach (ICD-10-PCS; 2023-06-25)
PROC: 3E033XZ Introduction of Vasopressor into Peripheral Vein, Percutaneous Approach (ICD-10-PCS; 2023-06-25)
PROC: 0SRS0J9 Replacement of Left Hip Joint, Femoral Surface with Synthetic Substitute, Cemented, Open Approach (ICD-10-PCS; principal; 2023-07-01)
PROC: 30233N1 Transfusion of Nonautologous Red Blood Cells into Peripheral Vein, Percutaneous Approach (ICD-10-PCS; 2023-07-01)
PROC: 4A10X4Z Monitoring of Central Nervous Electrical Activity, External Approach (ICD-10-PCS; 2023-07-07)
DX: M84.559A Pathological fracture in neoplastic disease, hip, unspecified, initial encounter for fracture (principal); A41.51 Sepsis due to Escherichia coli [E. coli]; D61.810 Antineoplastic chemotherapy induced pancytopenia; R65.21 Severe sepsis with septic shock; I21.A1 Myocardial infarction type 2; G93.41 Metabolic encephalopathy; I60.9 Nontraumatic subarachnoid hemorrhage, unspecified; C79.51 Secondary malignant neoplasm of bone; E87.20 Acidosis, unspecified; N39.0 Urinary tract infection, site not specified; N17.9 Acute kidney failure, unspecified; M62.82 Rhabdomyolysis; D62 Acute posthemorrhagic anemia; F41.9 Anxiety disorder, unspecified; C50.911 Malignant neoplasm of unspecified site of right female breast; L40.9 Psoriasis, unspecified; I48.0 Paroxysmal atrial fibrillation; E16.2 Hypoglycemia, unspecified; E86.0 Dehydration; Z88.5 Allergy status to narcotic agent; Z98.890 Other specified postprocedural states; Z11.52 Encounter for screening for COVID-19; Z79.899 Other long term (current) drug therapy; R33.9 Retention of urine, unspecified
CPT/HCPCS: 36415; 36416; 36430; 36556; 70450; 71045; 72131; 72170; 74176; 80048; 80053; 80202; 82533; 82550; 83605; 83735; 83880; 84100; 84443; 84484; 85025; 85610; 85730; 86140; 86850; 86900; 86901; 88307; 88311; 93005; 93010; 93306; 94760; 95711; 95819; 96374; C1889; J0282; J0692; J1650; J1720; J2060; J2270; J2370; J2405; J3010; J3370; J3475; J3490; J7030; J7042; J7050; J7070; J7120; P9016; Q0163

== ENCOUNTER 2024-09-14 16:06 | Emergency (ER) | payer BC, MEDICARE ==
[2024-09-14 17:09] LABS: Hematocrit 27.6 % (36.0-47.0); Hemoglobin 8.8 g/dL (12.0-16.0); Mean Corpuscular HGB CONC 31.9 g/dL (32.0-36.0); Mean Corpuscular Hemoglobin 29.5 pg (27.0-31.0); Mean Corpuscular Volume 92.6 fL (78.0-98.0); Mean Platelet Volume 8.3 fL (7.4-10.4); Platelet Count 327 10x3/uL (130-400); RBC Distribution Width 21.2 % (11.5-14.5); Red Blood Cell (RBC) Count 2.98 mill/uL (4.20-5.40)
[2024-09-14 17:13] LABS: ALT (SGPT) 15 U/L (8-55); AST (SGOT) 18 U/L (5-34); Albumin 3.3 g/dL (3.4-4.8); Alkaline Phosphatase 158 U/L (40-110); Anion Gap 16 mmol/L (10-20); BUN (Urea Nitrogen) 19 mg/dL (9.8-20.1); Bilirubin, Total 0.3 mg/dL (0.2-1.2); Calc. Creatinine Clearance 0 mL/min (70-130); Calcium 9.4 mg/dL (7.8-10.44); Carbon Dioxide 25 mmol/L (23-31); Chloride 105 mmol/L (98-107); Estimated GFR 46; Globulin 3.9 g/dL (2.4-3.5); Glucose 152 mg/dL (83-110); Magnesium 1.5 mg/dL (1.6-2.6); Potassium 3.8 mmol/L (3.5-5.1); Protein, Total 7.2 g/dL (5.8-8.1); Sodium 142 mmol/L (136-145)
[2024-09-14 17:21] LABS: Troponin I Less than 0.010 ng/mL (< 0.028)
[2024-09-14 17:38] LABS: Anisocytosis MODERATE=16-30 cells HPF (0-5); Band 4 % (5-11); Eosinophils 5 % (0-10); Hypochromia SLIGHT = 6-15 cells HPF (0-5); Lymphocytes 15 % (21-51); Macrocytosis MODERATE=16-30 cells HPF (0-5); Monocytes 4 % (0-10); Neutrophil 69 % (42-75); Nucleated RBC (Manual Ct) 6 % (0); Ovalocytes SLIGHT = 2-5 cells HPF (0-1); Platelet Adequacy Comment Platelets Normal; Polychromasia MARKED = >4 cells HPF (0-2); Reactive Lymphocytes 1 % (0-10); Schistocytes SLIGHT = 2-5 cells HPF (0-1); Target Cells SLIGHT = 2-5 cells HPF (0-1); Tear Drops SLIGHT = 2-5 cells HPF (0-1)
[2024-09-14 17:43] LABS: #Basophils 0.07 10x3/uL (0.0-0.2); %Basophils 0.7 % (0.0-1.0); %Eosinophils 3.8 % (0.0-10.0); %Lymphocytes 16.9 % (21.0-51.0); %Monocytes 9.4 % (0.0-10.0); %Neutrophils 59.1 % (42.0-75.0)
== END 2024-09-14 18:25 | disposition home or self-care (01) ==
LOC: ERS 16:06
DX: E11.65 Type 2 diabetes mellitus with hyperglycemia (principal); R54 Age-related physical debility; Z79.84 Long term (current) use of oral hypoglycemic drugs
CPT/HCPCS: 71045; 80053; 83735; 84484; 85025; 87040; 93005

== ENCOUNTER 2025-07-20 11:04 | Emergency (ER) | payer OTHER, MEDICARE ==
[2025-07-20 11:59] LABS: #Basophils 0.03 10x3/uL (0.0-0.2); #Eosinophils 0.24 10x3/uL (0.0-0.7); #Monocytes 0.62 10x3/uL (0.11-0.59); #Neutrophils 6.93 10x3/uL (1.40-6.50); %Basophils 0.3 % (0.0-1.0); %Eosinophils 2.8 % (0.0-10.0); %Lymphocytes 9.7 % (21.0-51.0); %Monocytes 7.1 % (0.0-10.0); %Neutrophils 79.5 % (42.0-75.0); Hematocrit 35.6 % (36.0-47.0); Hemoglobin 11.2 g/dL (12.0-16.0); Mean Corpuscular Hemoglobin 30.1 pg (27.0-31.0); Mean Corpuscular Volume 95.7 fL (78.0-98.0); Platelet Count 265 10x3/uL (130-400); Red Blood Cell (RBC) Count 3.72 mill/uL (4.20-5.40); White Blood Cell (WBC) Count 8.72 10x3/uL (4.8-10.8)
[2025-07-20 12:21] LABS: ALT (SGPT) 19 U/L (Less than 34); AST (SGOT) 48 U/L (11-34); Albumin 3.7 g/dL (3.1-4.5); Alkaline Phosphatase 260 U/L (40-110); Anion Gap 16 mmol/L (10-20); BUN (Urea Nitrogen) 25 mg/dL (9.8-20.1); Bilirubin, Total 0.3 mg/dL (0.3-1.2); Calc. Creatinine Clearance 0 mL/min (70-130); Calcium 10.0 mg/dL (7.8-10.44); Carbon Dioxide 28 mmol/L (23-31); Chloride 100 mmol/L (98-107); Globulin 3.6 g/dL (2.4-3.5); Glucose 139 mg/dL (83-110); Lipase 16 U/L (8-78); Potassium 4.4 mmol/L (3.5-5.1); Sodium 140 mmol/L (136-145)
[2025-07-20] MEDS ORDERED: Iopamidol-370 76% 500 ML MDV (1 ML CHARGE) ONE (14:00)
== END 2025-07-20 14:15 | disposition home or self-care (01) ==
LOC: ERS 11:04
DX: G89.29 Other chronic pain (principal); M54.50 Low back pain, unspecified; C78.7 Secondary malignant neoplasm of liver and intrahepatic bile duct; C79.70 Secondary malignant neoplasm of unspecified adrenal gland; E11.9 Type 2 diabetes mellitus without complications; Z85.3 Personal history of malignant neoplasm of breast
CPT/HCPCS: 74177; 80053; 83690; 85025; 96374

== ENCOUNTER 2025-08-04 12:50 | Emergency (ER) | payer OTHER, MEDICARE ==
[~2025-08-04 12:50] MED LIST: Iopamidol-370 76% 500 ML MDV (1 ML CHARGE) ONE
[2025-08-04] MEDS ORDERED: HYDROmorphone 0.5 MG/0.5 ML SYRINGE ONE (15:51)
[2025-08-04] MEDS ORDERED: Ondansetron PF 4 MG/2 ML Vial ONE ×3 (16:07→18:51)
[2025-08-04 16:20] LABS: #Basophils 0.05 10x3/uL (0.0-0.2); #Eosinophils 0.24 10x3/uL (0.0-0.7); #Monocytes 0.81 10x3/uL (0.11-0.59); #Neutrophils 8.73 10x3/uL (1.40-6.50); %Basophils 0.4 % (0.0-1.0); %Eosinophils 2.1 % (0.0-10.0); %Lymphocytes 11.8 % (21.0-51.0); %Monocytes 7.1 % (0.0-10.0); %Neutrophils 76.7 % (42.0-75.0); Hematocrit 34.4 % (36.0-47.0); Hemoglobin 11.2 g/dL (12.0-16.0); Mean Corpuscular Hemoglobin 29.4 pg (27.0-31.0); Mean Corpuscular Volume 90.3 fL (78.0-98.0); Platelet Count 261 10x3/uL (130-400); Red Blood Cell (RBC) Count 3.81 mill/uL (4.20-5.40); White Blood Cell (WBC) Count 11.40 10x3/uL (4.8-10.8)
[2025-08-04 16:38] LABS: ALT (SGPT) 21 U/L (Less than 34); AST (SGOT) 53 U/L (11-34); Albumin 3.6 g/dL (3.1-4.5); Alkaline Phosphatase 302 U/L (40-110); Anion Gap 17 mmol/L (10-20); BUN (Urea Nitrogen) 16 mg/dL (9.8-20.1); Bilirubin, Total 0.7 mg/dL (0.3-1.2); Calc. Creatinine Clearance 0 mL/min (70-130); Calcium 10.3 mg/dL (7.8-10.44); Carbon Dioxide 26 mmol/L (23-31); Chloride 100 mmol/L (98-107); Globulin 3.9 g/dL (2.4-3.5); Glucose 129 mg/dL (83-110); Potassium 4.2 mmol/L (3.5-5.1); Sodium 139 mmol/L (136-145)
[2025-08-04 17:00] LABS: Glucose, Urine (Dipstick) Negative (Negative); Leukocyte Small (Negative); Protein, Urine (Dipstick) Trace mg/dL (Neg-Trace); Specific Gravity, Urine 1.025 (1.005-1.030)
[2025-08-04 17:05] LABS: Bacteria/HPF 1+ HPF (None Seen); CAUTI Indications for Culture Pelvic or flank pain; Mucous/LPF Rare LPF (<2+); RBC/HPF 0-3 HPF (0-3); WBC/HPF 21-50 HPF (0-3)
[2025-08-04 17:06] LABS: Urine Culture Reflex Yes Yes
[2025-08-04] MEDS ORDERED: cefTRIAXone (ROCEPHIN) 1 GM VIAL ONE (17:49)
[2025-08-04] MEDS ORDERED: Ketamine In 0.9 % NaCl 50 MG/5 ML SYRINGE ONE (18:32)
== END 2025-08-04 19:47 | disposition home or self-care (01) ==
LOC: ERS 12:50
DX: M54.50 Low back pain, unspecified (principal); E11.9 Type 2 diabetes mellitus without complications; C50.919 Malignant neoplasm of unspecified site of unspecified female breast; C79.51 Secondary malignant neoplasm of bone
CPT/HCPCS: 71260; 72131; 74177; 80053; 81001; 85025; 87077; 87086; 87186; 96365; 96375; 96376; J0696; J1171; J2405; J3490; Q9967

== ENCOUNTER 2025-08-05 09:58 | Inpatient (IN) | payer OTHER, MEDICARE ==
[2025-08-05] MEDS ORDERED: Ondansetron PF 4 MG/2 ML Vial ONE (10:37)
[2025-08-05 10:56] LABS: #Basophils 0.04 10x3/uL (0.0-0.2); #Eosinophils 0.11 10x3/uL (0.0-0.7); #Monocytes 0.86 10x3/uL (0.11-0.59); #Neutrophils 10.06 10x3/uL (1.40-6.50); %Basophils 0.3 % (0.0-1.0); %Eosinophils 0.9 % (0.0-10.0); %Lymphocytes 10.8 % (21.0-51.0); %Monocytes 6.8 % (0.0-10.0); %Neutrophils 79.2 % (42.0-75.0); Hematocrit 34.4 % (36.0-47.0); Hemoglobin 11.4 g/dL (12.0-16.0); Mean Corpuscular Hemoglobin 29.8 pg (27.0-31.0); Mean Corpuscular Volume 90.1 fL (78.0-98.0); Platelet Count 249 10x3/uL (130-400); Red Blood Cell (RBC) Count 3.82 mill/uL (4.20-5.40); White Blood Cell (WBC) Count 12.70 10x3/uL (4.8-10.8)
[2025-08-05 11:11] LABS: ALT (SGPT) 20 U/L (Less than 34); AST (SGOT) 56 U/L (11-34); Albumin 3.8 g/dL (3.1-4.5); Alkaline Phosphatase 303 U/L (40-110); Anion Gap 19 mmol/L (10-20); BUN (Urea Nitrogen) 16 mg/dL (9.8-20.1); Bilirubin, Total 0.7 mg/dL (0.3-1.2); Calc. Creatinine Clearance 0 mL/min (70-130); Calcium 9.9 mg/dL (7.8-10.44); Carbon Dioxide 24 mmol/L (23-31); Chloride 100 mmol/L (98-107); Globulin 3.2 g/dL (2.4-3.5); Glucose 126 mg/dL (83-110); Potassium 4.7 mmol/L (3.5-5.1); Sodium 138 mmol/L (136-145)
[2025-08-05] MEDS ORDERED: Cefepime 2 GM VIAL ONE (11:42)
[2025-08-05] MEDS ORDERED: Glucagon 1 MG/ML KIT IM PRN (12:15)
[2025-08-05] MEDS ORDERED: Dextrose 50% Abboject 50 ML SYRINGE SLOW IVP PRN (12:15)
[2025-08-05] MEDS: VANCOMYCIN 1.75 GM/350 ML Premix BAG IVPB SCH (12:24)
[2025-08-05] MEDS ORDERED: ALPRAZolam 0.5 MG TAB PO PRN (12:53)
[2025-08-05] MEDS ORDERED: Gabapentin 300 MG CAP PO PRN (12:53)
[2025-08-05] MEDS: Melatonin 3 MG TAB PO PRN (20:38)
[2025-08-05] MEDS: Acetaminophen 325 MG TAB PO PRN (20:39)
[2025-08-05 20:47] VITALS: BMI 28.5
[2025-08-06 10:10] LABS: #Basophils 0.06 10x3/uL (0.0-0.2); #Eosinophils 0.19 10x3/uL (0.0-0.7); #Monocytes 0.99 10x3/uL (0.11-0.59); #Neutrophils 9.86 10x3/uL (1.40-6.50); %Basophils 0.5 % (0.0-1.0); %Eosinophils 1.5 % (0.0-10.0); %Lymphocytes 10.2 % (21.0-51.0); %Monocytes 7.8 % (0.0-10.0); %Neutrophils 77.3 % (42.0-75.0); Hematocrit 32.2 % (36.0-47.0); Hemoglobin 10.6 g/dL (12.0-16.0); Mean Corpuscular Hemoglobin 30.3 pg (27.0-31.0); Mean Corpuscular Volume 92.0 fL (78.0-98.0); Platelet Count 250 10x3/uL (130-400); Red Blood Cell (RBC) Count 3.50 mill/uL (4.20-5.40); White Blood Cell (WBC) Count 12.74 10x3/uL (4.8-10.8)
[2025-08-06 10:29] LABS: Anion Gap 15 mmol/L (10-20); BUN (Urea Nitrogen) 16 mg/dL (9.8-20.1); Calc. Creatinine Clearance 68 mL/min (70-130); Calcium 9.4 mg/dL (7.8-10.44); Carbon Dioxide 23 mmol/L (23-31); Chloride 101 mmol/L (98-107); Glucose 133 mg/dL (83-110); Potassium 4.2 mmol/L (3.5-5.1); Sodium 135 mmol/L (136-145)
[2025-08-06] MEDS: cefTRIAXone\\ROCEPHIN 1 GM in Sodium Chloride 0.9% 100 ML IVPB SCH (12:36)
[2025-08-06] MEDS: Morphine IR 10 MG/5 ML UDCUP PO PRN (13:38)
[2025-08-06] MEDS: Gabapentin 300 MG CAP PO PRN (20:42)
[2025-08-06] MEDS: Ondansetron PF 4 MG/2 ML Vial IVP PRN (20:56)
[2025-08-07] MEDS: Senokot S 8.6-50 MG TAB PO PRN (05:17)
[2025-08-07 05:50] LABS: #Basophils 0.06 10x3/uL (0.0-0.2); #Eosinophils 0.30 10x3/uL (0.0-0.7); #Monocytes 1.22 10x3/uL (0.11-0.59); #Neutrophils 8.69 10x3/uL (1.40-6.50); %Basophils 0.5 % (0.0-1.0); %Eosinophils 2.5 % (0.0-10.0); %Lymphocytes 12.1 % (21.0-51.0); %Monocytes 10.2 % (0.0-10.0); %Neutrophils 72.3 % (42.0-75.0); Hematocrit 33.1 % (36.0-47.0); Hemoglobin 10.7 g/dL (12.0-16.0); Mean Corpuscular Hemoglobin 29.6 pg (27.0-31.0); Mean Corpuscular Volume 91.7 fL (78.0-98.0); Platelet Count 254 10x3/uL (130-400); Red Blood Cell (RBC) Count 3.61 mill/uL (4.20-5.40); White Blood Cell (WBC) Count 12.01 10x3/uL (4.8-10.8)
[2025-08-07 06:06] LABS: Anion Gap 14 mmol/L (10-20); BUN (Urea Nitrogen) 17 mg/dL (9.8-20.1); Calc. Creatinine Clearance 70 mL/min (70-130); Calcium 9.6 mg/dL (7.8-10.44); Carbon Dioxide 28 mmol/L (23-31); Chloride 101 mmol/L (98-107); Glucose 98 mg/dL (83-110); Potassium 4.2 mmol/L (3.5-5.1); Sodium 139 mmol/L (136-145)
[2025-08-07 14:20] VITALS: BP 148/72; TEMP 98.2
[2025-08-08] MEDS ORDERED: PNEUMOC 20-VAL CONJ-DIP CRM/PF 0.5 ML SYRINGE IM ONE (09:00)
== END 2025-08-07 15:19 | disposition home or self-care (01) | DRG 872 ==
LOC: ERS 09:58 → ERHOLD 11:44 → T4-A 20:17
PROVIDERS: ADMIT Family Medicine; ATTEND Hospitalist
DX: A41.9 Sepsis, unspecified organism (principal); N39.0 Urinary tract infection, site not specified; C79.51 Secondary malignant neoplasm of bone; Z88.5 Allergy status to narcotic agent; E11.9 Type 2 diabetes mellitus without complications; G51.0 Bell's palsy; M27.2 Inflammatory conditions of jaws; Z98.890 Other specified postprocedural states; I10 Essential (primary) hypertension; C50.919 Malignant neoplasm of unspecified site of unspecified female breast; G89.3 Neoplasm related pain (acute) (chronic); F41.9 Anxiety disorder, unspecified; Z79.899 Other long term (current) drug therapy
CPT/HCPCS: 36415; 72158; 80048; 80053; 83605; 85025; 86141; 87040; 87149; 93005; 96365; 96366; 96367; 96375; J0692; J0696; J2272; J2405; J3010